=== PATIENT | female | born 1960 | race African-American/Black ===

== ENCOUNTER 2016-07-15 11:43 | Observation (INO) | payer BC ==
[2016-07-15] MEDS ORDERED: INFLUENZA ADLT QUAD (36MOS+) 2016-17 VAC 0.5 ML SYR IM PRN (15:12)
[2016-07-15 16:17] LABS: HEMATOCRIT 41.2 % (36.0-47.0); HEMOGLOBIN 14.4 g/dL (12.0-15.5); MEAN CORPUSCULAR HEMOGLOBIN 33.8 pg (27.0-33.4); MEAN CORPUSCULAR HGB CONC 34.9 g/dL (32.0-36.0); MEAN CORPUSCULAR VOLUME 97 fl (80-97); RED BLOOD COUNT 4.25 10^6/uL (3.72-5.28); RED CELL DISTRIBUTION WIDTH 13.8 % (11.5-14.0); WHITE BLOOD COUNT 7.9 10^3/uL (4.0-10.5)
[2016-07-15 16:36] LABS: ALANINE AMINOTRANSFERASE 105 U/L (9-52); ALBUMIN 3.6 g/dL (3.5-5.0); ALKALINE PHOSPHATASE 133 U/L (38-126); ANION GAP 13 (5-19); ASPARTATE AMINO TRANSFERASE 121 U/L (14-36); BLOOD UREA NITROGEN 4 mg/dL (7-20); CALCIUM 9.9 mg/dL (8.4-10.2); CARBON DIOXIDE 24 mmol/L (22-30); CHLORIDE 101 mmol/L (98-107); CREATININE RESULT 0.57 mg/dL (0.52-1.25); GLUCOSE 142 mg/dL (75-110); POTASSIUM 4.5 mmol/L (3.6-5.0); SODIUM 137.5 mmol/L (137-145); TOTAL PROTEIN 7.2 g/dL (6.3-8.2)
[2016-07-15 17:14] LABS: THYROID STIMULATING HORMONE 2.81 uIU/mL (0.47-4.68)
[2016-07-15] MEDS ORDERED: CLOPIDOGREL BISULFATE 75 MG TABLET PO ONE (19:00)
--- NOTE | 2016-07-15 19:15 | PDOC H&P ---
History of Present Illness Admission Date/PCP: 07/15/16 12:15 HAIM HAWK MD History of Present Illness: MAXIMO LOPEZ is a 55 year old female, she came to the office today with complaint of increased falls, weight loss, the blood pressure recorded in the office was elevated. She has a history of previous CVA, because of the elevated blood pressure and the fact that she has history of CVA. She was admitted directly from the office into the hospital for observation and evaluation of her symptoms. MRI of the head was done without contrast and it showed atrophy induced permanence of ventricles and CSF spaces. There is no acute or subacute infarction. The MRI brain showed diffuse chronic cerebra white matter disease from prior ischemic events persistent absence of both internal carotid artery vascular flow. Patient continues to abuse alcohol and tobacco. Past Medical History Cardiac Medical History: Reports: Hypertension Pulmonary Medical History: Reports: Chronic Obstructive Pulmonary Disease (COPD) Neurological Medical History: Reports: Ischemic CVA Psychiatric Medical History: Reports: Depression - 20 years ago Past Surgical History Past Surgical History: Reports: Section Social History Smoking Status: Current Every Day Smoker Cigarettes Packs Per Day: 11 Frequency of Alcohol Use: Heavy Hx Recreational Drug Use: No Hx Prescription Drug Abuse: No Family History Family History: Reviewed & Not Pertinent Parental Family History Reviewed: Yes Children Family History Reviewed: Yes Sibling(s) Family History Reviewed.: Yes Medication/Allergy Home Medications: Clopidogrel Bisulfate [Plavix 75 mg Tablet] 75 mg PO DAILY 07/15/16 Losartan Potassium [Cozaar 100 mg Tablet] 100 mg PO DAILY #30 tablet 07/15/16 Allergies/Adverse Reactions: aspirin [Aspirin] Allergy (Verified 05/27/14 22:25) Physical Exam Vital Signs: Temp Pulse Resp BP Pulse Ox 98.1 F 99 16 165/78 H 100 07/15/16 15:15 07/15/16 15:15 07/15/16 15:15 07/15/16 15:15 07/15/16 15:15 Intake & Output 07/14/16 07/15/16 07/16/16 06:59 06:59 06:59 Intake Total 175 Balance 175 General appearance: PRESENT: no acute distress Eye exam: PRESENT: PERRLA Respiratory exam: PRESENT: clear to auscultation naresh Cardiovascular exam: PRESENT: +S1, +S2 GI/Abdominal exam: PRESENT: soft Neurological exam: PRESENT: alert, CN II-XII grossly intact Results Laboratory Results: 07/15/16 16:05 07/15/16 16:05 07/15/16 07/15/16 07/15/16 16:05 16:05 16:05 WBC 7.9 RBC 4.25 Hgb 14.4 Hct 41.2 MCV 97 MCH 33.8 H MCHC 34.9 RDW 13.8 Plt Count 200 Sodium 137.5 Potassium 4.5 Chloride 101 Carbon Dioxide 24 Anion Gap 13 BUN 4 L Creatinine 0.57 Est GFR ( Amer) > 60 Est GFR (Non-Af Amer) > 60 Glucose 142 H Calcium 9.9 Total Bilirubin 1.0 AST 121 H ALT 105 H Alkaline Phosphatase 133 H Total Protein 7.2 Albumin 3.6 TSH 2.81 Free T4 1.11 Impressions: Chest X-Ray 07/15/16 00:00 IMPRESSION: NO SIGNIFICANT RADIOGRAPHIC FINDING IN THE CHEST. Head MRI 07/15/16 00:00 IMPRESSION: Negative for acute or sub-acute infarction. Diffuse chronic cerebral white matter disease from prior ischemic events. Persistent absence of both internal carotid artery vascular flow voids. Assessment & Plan - Diagnosis (1) Hypertensive crisis Is this a current diagnosis for this admission?: YesPlan: The MRI is negative. She was given losartan for blood pressure control (2) Personal history of carotid atherosclerosis Is this a current diagnosis for this admission?: Yes
[2016-07-15 19:24] VITALS: BP 160/70
[2016-07-16] MEDS ORDERED: CLOPIDOGREL BISULFATE 75 MG TABLET PO SCH (10:00)
--- NOTE | 2016-07-16 16:55 | EKG REPORT ---
SEVERITY:- BORDERLINE ECG - SINUS RHYTHM PROBABLE LEFT ATRIAL ABNORMALITY BORDERLINE T ABNORMALITIES, ANT-LAT LEADS : Confirmed by: Sintia Gonsales MD 16-Jul-2016 16:55:13
== END 2016-07-15 19:40 | disposition home or self-care (01) ==
LOC: ER 11:43 → EH 12:15 → 3S 14:42
PROVIDERS: ADMIT Internal Medicine; ATTEND Internal Medicine
DX: I16.9 Hypertensive crisis, unspecified (principal); I10 Essential (primary) hypertension; I65.23 Occlusion and stenosis of bilateral carotid arteries; J44.9 Chronic obstructive pulmonary disease, unspecified; F17.210 Nicotine dependence, cigarettes, uncomplicated; Z79.02 Long term (current) use of antithrombotics/antiplatelets; Z91.81 History of falling; Z86.73 Personal history of transient ischemic attack (TIA), and cerebral infarction without residual deficits
CPT/HCPCS: 36415; 84439; 84443; 85027; 80076; 80048; 83036; 70551; 71020; 93005; 93010; G0378; G0379

== ENCOUNTER → 2016-08-06 | Outpatient (CLI) | payer BC | LOC: RAD 08-04 14:08 | PROVIDERS: ATTEND Internal Medicine | DX: R63.4 Abnormal weight loss (principal) | CPT/HCPCS: 71260; 74177 ==

== ENCOUNTER 2017-04-18 10:53 | Emergency (ER) | payer OTHER, MEDICARE, MEDICAID ==
[2017-04-18 11:06] VITALS: BP 148/86
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
== END 2017-04-18 11:50 | disposition home or self-care (01) ==
LOC: ER 10:53
DX: Z71.1 Person with feared health complaint in whom no diagnosis is made (principal); V89.2XXA Person injured in unspecified motor-vehicle accident, traffic, initial encounter
CPT/HCPCS: 99283

== ENCOUNTER → 2017-06-16 | Outpatient (CLI) | payer MEDICARE, MEDICAID ==
--- NOTE | 2017-06-16 10:18 | WOMENS IMAGING REPORT ---
EXAM DESCRIPTION: U/S ABDOMEN TOTAL COMPLETED DATE/TIME: 06/16/2017 9:21 am REASON FOR STUDY: SCREENING MAMMO R63.4 ABNORMAL WEIGHT LOSS K70.0 ALCOHOLIC FATTY LIVER COMPARISON: Abdominal CT scan dated July 2016 TECHNIQUE: Dynamic and static grayscale images acquired of the abdomen and recorded on PACS. Additio nal selected color Doppler and spectral images recorded. LIMITATIONS: Study is limited somewhat due to overlying bowel gas. FINDINGS: PANCREAS: No masses. Visualized pancreatic duct normal caliber. LIVER: Echotexture is coarse with increased echogenicity consistent with fatty infiltration. This wa s present on the previous CT scan. LIVER VASCULATURE: Normal directional flow of the main portal vein and hepatic veins. GALLBLADDER: No stones. Normal wall thickness. No pericholecystic fluid. ULTRASOUND-DETECTED EID'S SIGN: Negative. INTRAHEPATIC DUCTS AND COMMON DUCT: CBD and intrahepatic ducts normal caliber. No filling defects. INFERIOR VENA CAVA: Normal flow. AORTA: Abdominal aorta was incompletely visualized due to overlying bowel gas. RIGHT KIDNEY: 10.5 cm in length. Normal echogenicity. No solid or suspicious masses. No hydron ephrosis. No calcifications. LEFT KIDNEY: 12 cm in length. Normal echogenicity. No solid or suspicious masses. No hydroneph rosis. No calcifications. SPLEEN:Normal size. No solid masses. PERITONEAL AND PLEURAL SPACES: No ascites or effusions. OTHER: No other significant finding. IMPRESSION: FATTY LIVER. NO OTHER SIGNIFICANT FINDING. TECHNICAL DOCUMENTATION: JOB ID: [id number] [employer]- All Rights Reserved
== END ==
LOC: WI 07:38
PROVIDERS: ATTEND Internal Medicine Gastroenterology
DX: K70.0 Alcoholic fatty liver (principal); R63.4 Abnormal weight loss
CPT/HCPCS: 76700

== ENCOUNTER → 2017-06-17 | Outpatient (CLI) | payer MEDICARE, MEDICAID ==
--- NOTE | 2017-06-17 13:08 | RADIOLOGY REPORT (SQ) ---
EXAM DESCRIPTION: CHEST PA/LATERAL COMPLETED DATE/TIME: 06/17/2017 11:25 am REASON FOR STUDY: COUGH COMPARISON: 07/15/2016. EXAM PARAMETERS: NUMBER OF VIEWS: two views TECHNIQUE: Digital Frontal and Lateral radiographic views of the chest acquired. RADIATION DOSE: NA LIMITATIONS: none FINDINGS: LUNGS AND PLEURA: No opacities, masses or pneumothorax. No pleural effusion. MEDIASTINUM AND HILAR STRUCTURES: No masses or contour abnormalities. HEART AND VASCULAR STRUCTURES: Heart normal size. No evidence for failure. BONES: No acute findings. HARDWARE: None in the chest. OTHER: No other significant finding. IMPRESSION: NO SIGNIFICANT RADIOGRAPHIC FINDING IN THE CHEST. TECHNICAL DOCUMENTATION: JOB ID: [id number] [employer]- All Rights Reserved
== END ==
LOC: OD 11:10
PROVIDERS: ATTEND Internal Medicine
DX: R05 Cough (principal)
CPT/HCPCS: 71046